=== PATIENT | male | born 1945 | race African-American/Black ===

== ENCOUNTER 2016-12-08 21:02 | Emergency (ER) | payer MEDICARE, OTHER ==
[~2016-12-08] VITALS: Ht 188 cm; Wt 138.0 kg
[~2016-12-08 21:02] MED LIST: ALBUS PO; ALFU10TA2 PO; AMIT10 PO; ATEN-102 PO; BENZ1TAB PO; BUDE100T PO; D31000CA PO; DOCU50SY2 PO; FOLI1 PO; GLIP10TA6 PO; IBUP600T26 PO; LEVO125T3 PO; NORC7.5T PO; OMEP20TA39 PO; PERP8TAB7 PO; PRAV20 PO; RANI300T PO; REME15TA PO; ROBISYP PO; SENN8.6T15 PO; ST J81CH PO; TRAZ100 PO
[2016-12-08 21:15] VITALS: BP 141/72; PULSE 98; RESP 18; TEMP 98.1; O2SAT 98
== END 2016-12-08 22:03 | disposition left against medical advice (07) ==
LOC: NEDAMB 21:02
DX: T17.298A Other foreign object in pharynx causing other injury, initial encounter (principal)
CPT/HCPCS: 99281

== ENCOUNTER 2017-07-31 23:25 | Emergency (ER) | payer OTHER ==
[~2017-07-31] VITALS: Ht 188 cm; Wt 138.0 kg
[2017-07-31 23:38] VITALS: BP 147/85; PULSE 100; RESP 18; TEMP 98.3; O2SAT 94
[2017-07-31] MEDS ORDERED: SODIUM CHLORIDE 0.9% FLUSH 10 ML FLUSH IVF PRN (23:45)
[2017-07-31 23:49] VITALS: O2SAT 97
[2017-07-31] MEDS: RESP: ALBUTEROL 2.5 MG/IPRATROPIUM 0.5 MG NEB (SCH) INH (23:55)
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
[2017-08-01] MEDS: RESP: ALBUTEROL 2.5 MG/IPRATROPIUM 0.5 MG NEB (SCH) INH ×2 (00:04→00:28)
[2017-08-01 00:29] LABS: POTASSIUM 3.7 MEQ/L (3.5-5.1)
--- NOTE | 2017-08-01 00:31 | RADRPT ---
EXAM DATE/TIME: 07/31/2017 23:57 [facility] COMPARISON: CHEST SINGLE AP, May 29, 2016, 0:52. INDICATIONS : Shortness of breath. MEDICAL HISTORY : Hypertension. Chronic obstructive pulmonary disease. Carcinoma, lung. SURGICAL HISTORY : Lobectomy. ENCOUNTER: Initial ACUITY: 1 day PAIN SCORE: 0/10 LOCATION: Bilateral chest FINDINGS: Surgical changes with scarring and volume loss again noted on the right. Don't see an acute infiltrat e on either side. No pleural effusion or pneumothorax seen. Heart size stable, within normal limits. CONCLUSION: No acute cardiopulmonary disease demonstrated. Scot Moore MD on August 01, 2017 at 0:29 Board Certified Radiologist. This report was verified electronically.
[2017-08-01 00:32] LABS: BICARBONATE 33.2 MEQ/L (21.0-32.0)
[2017-08-01 00:41] LABS: AUTOMATED NEUTROPHIL # 5.2 TH/MM3 (1.8-7.7); BASOPHIL % 0.4 % (0.0-2.0); EOSINOPHIL # 0.1 TH/MM3 (0-0.4); EOSINOPHIL % 0.8 % (0.0-4.0); HEMATOCRIT 35.4 % (39.0-51.0); LYMPH % 14.2 % (9.0-44.0); LYMPHOCYTE # 0.9 TH/MM3 (1.0-4.8); MEAN CELL VOLUME 73.7 FL (80.0-100.0); MEAN CORPUSCULAR HEMOGLOBIN 23.3 PG (27.0-34.0); MEAN CORPUSCULAR HGB CONC 31.6 % (32.0-36.0); MONO % 4.5 % (0.0-8.0); NEUT % 80.1 % (16.0-70.0); PLATELET COUNT 152 TH/MM3 (150-450); RED BLOOD COUNT 4.81 MIL/MM3 (4.50-5.90); RED CELL DISTRIBUTION WIDTH 16.3 % (11.6-17.2); WHITE BLOOD COUNT 6.5 TH/MM3 (4.0-11.0)
[2017-08-01] MEDS ORDERED: AMIT25TA9 PO (00:41)
[2017-08-01] MEDS ORDERED: BENZ1INJ2 PO (00:41)
[2017-08-01] MEDS ORDERED: PERP8TAB16 PO (00:41)
[2017-08-01] MEDS ORDERED: RANI300C PO (00:41)
[2017-08-01] MEDS ORDERED: ALBUS PO (00:41)
[2017-08-01] MEDS ORDERED: ATEN50TA PO (00:41)
[2017-08-01] MEDS ORDERED: ALFU10TA2 PO (00:41)
[2017-08-01] MEDS ORDERED: LEVO125T4 PO (00:41)
[2017-08-01] MEDS ORDERED: GLIP10TA6 PO (00:41)
[2017-08-01] MEDS ORDERED: SYMB160A INH (00:41)
[2017-08-01] MEDS ORDERED: PRAV20TA2 PO (00:41)
[2017-08-01] MEDS ORDERED: VITA100036 PO (00:41)
[2017-08-01] MEDS ORDERED: MIRT1TAB PO (00:41)
[2017-08-01] MEDS ORDERED: TRAZ300T2 PO (00:41)
[2017-08-01] MEDS ORDERED: FOLI800T PO (00:41)
[2017-08-01] MEDS ORDERED: OMEP20TA PO (00:41)
[2017-08-01] MEDS ORDERED: DOCU100C PO (00:41)
[2017-08-01] MEDS ORDERED: ASPI81CH CHEW (00:41)
[2017-08-01] MEDS ORDERED: ZITH500T PO (00:44)
[2017-08-01] MEDS ORDERED: FUROSEMIDE 100 MG/10 ML VIAL IV PUSH ONE (00:45)
[2017-08-01 00:51] LABS: HEMO FLAGS AUTO DIFF
[2017-08-01] MEDS ORDERED: AZITHROMYCIN 250 MG TAB PO ONE (01:00)
[2017-08-01 01:05] LABS: PLATELET ESTIMATE SMEAR NORMAL (NORMAL); PLATELET MORPHOLOGY NORMAL (NORMAL); SCAN/DIFF AUTO DIFF CONFIRMED
[2017-08-01 01:06] LABS: OVALOCYTES 1+ (NORMAL)
[2017-08-01 01:23] VITALS: BP 148/74; PULSE 82; RESP 18; O2SAT 98
== END 2017-08-01 01:26 | disposition home or self-care (01) ==
LOC: PHED 23:25
DX: J40 Bronchitis, not specified as acute or chronic (principal); R06.2 Wheezing; E11.9 Type 2 diabetes mellitus without complications; I10 Essential (primary) hypertension; E07.9 Disorder of thyroid, unspecified; E66.9 Obesity, unspecified; Z79.82 Long term (current) use of aspirin; Z79.84 Long term (current) use of oral hypoglycemic drugs; Z87.39 Personal history of other diseases of the musculoskeletal system and connective tissue; Z86.59 Personal history of other mental and behavioral disorders; Z87.09 Personal history of other diseases of the respiratory system; Z86.79 Personal history of other diseases of the circulatory system; Z85.118 Personal history of other malignant neoplasm of bronchus and lung; Z87.19 Personal history of other diseases of the digestive system
CPT/HCPCS: 71020; 80048; 83880; 85025; 94640; 94664; 96374; 99284; J1940